=== PATIENT | female | born 1995 | race Caucasian/White ===

== ENCOUNTER 2019-05-31 12:42 | Emergency (ER) | payer OTHER ==
[~2019-05-31] VITALS: Ht 160 cm; Wt 49.9 kg
--- NOTE | 2019-05-31 12:47 | NUR ---
ED Nurse Note: Seizure precaution initiated. Padded siderailx 2 . Placed patient on cardiac monitior. Call light within reach. Instructed friend to press call light.
[2019-05-31] MEDS ORDERED: levETIRAcetam 1,000mg/NS100ml 100 ML IVPB ONE (13:00)
--- NOTE | 2019-05-31 13:12 | Emergency Room Report ---
History of Present Illness General Chief Complaint: Seizure Source: Patient Present Illness HPI Disclaimer: Please note that this report is being documented using DRAGON technology. This can lead to erroneous entry secondary to incorrect interpretation by the dictating instrument. HPI: 23-year-old female with a history of seizures presents for evaluation after generalized tonic-clonic seizure. While the patient states she has had generalized seizures in the past they have not occurred in several years and it only occurred in the context of drinking alcohol. She does not take any antiepileptic medications. She was resting at home after a night of drinking when she had a witnessed generalized tonic clonic seizure occurring while laying on the couch. There is no fall or head injury. She regained consciousness soon after her convulsions ended. There is no vomiting, she was ambulatory and was able to walk into the emergency department of difficulty. She denies any headache, visual changes, chest pain, shortness of breath, abdominal pain, nausea, vomiting. No recent change in her state of health. She no longer follows up with her neurologist. PMH: Seizure disorder PSH: Denies Allergies: Denies Social Hx: Social alcohol use. Denies tobacco or drug use Allergies: Coded Allergies: No Known Allergies (Unverified , 05/31/19) Patient History Last Menstrual Period: 05/23/2019 Nursing Documentation-PMH Past Medical History: No History, Except For History Of Psychiatric Problem: Yes - anxiety Hx Seizures: Yes Review of Systems All Other Systems: negative except mentioned in HPI Physical Exam Vital Signs Date Time Temp Pulse Resp B/P (MAP) Pulse Ox O2 Delivery O2 Flow Rate FiO2 05/31/19 12:45 98.1 118 18 127/68 (87) 99 Room Air General: Awake and alert, no acute distress HEENT: NC/AT. EOMI. PERRLA. Visual busch are full. No nystagmus. Facial expressions are symmetrical. No facial droop. Cardiovascular: RRR. S1 and S2 normal. No murmur appreciated Resp: Normal work of breathing. No cough, wheezing or crackles appreciated Abdomen: Abdomen is soft, nondistended. Nontender Skin: Intact. No abrasions, laceration or rash over the exposed skin MSK: Normal tone and bulk. Moving all extremities. No obvious deformity. There is no drift in the upper or lower extremities bilaterally. Neuro: Awake and alert. Mentating appropriately. Facial expression symmetrical. No dysarthria, no ataxia on [id number] or [id number] testing. Sensation to light touch is intact over the upper and lower extremities. The patient has intact speech with good repetition, comprehension. Fund of knowledge is full. Medical Decision Making Diagnostic Impression: Primary Impression: Epileptic seizure, generalized ER Course 23-year-old female with a history of seizure disorder presents after a generalized seizure occurring today without a head injury. Overall she is well- appearing, exam is nonfocal and she has no acute complaints at this time. Likely this is another 1 of her seizures that is related to alcohol use and I counseled her on the dangers of drinking alcohol in the setting. She was given a gram of Keppra on arrival and we will check metabolic and infectious labs however do not believe she requires a CT scan of the head at this time. I also counseled the patient that she is not to drive or operate any heavy machinery until she can be reevaluated and cleared for these activities by a neurologist. Presuming unremarkable labs she may be discharged home without antiepileptic medication however she should have close follow-up with PMD and neurology. Laboratory Tests Test 05/31/19 13:00 05/31/19 13:35 White Blood Count 6.7 K/UL (4.8-10.8) Red Blood Count 4.58 M/UL (4.20-5.40) Hemoglobin 14.1 G/DL (12.0-16.0) Hematocrit 41.6 % (37.0-47.0) Mean Corpuscular Volume 91 FL (80-99) Mean Corpuscular Hemoglobin 30.8 PG (27.0-31.0) Mean Corpuscular Hemoglobin Concent 33.9 G/DL (32.0-36.0) Red Cell Distribution Width 10.9 % (11.6-14.8) L Platelet Count 438 K/UL (150-450) Mean Platelet Volume 5.3 FL (6.5-10.1) L Neutrophils (%) (Auto) 59.7 % (45.0-75.0) Lymphocytes (%) (Auto) 32.9 % (20.0-45.0) Monocytes (%) (Auto) 6.0 % (1.0-10.0) Eosinophils (%) (Auto) 0.8 % (0.0-3.0) Basophils (%) (Auto) 0.6 % (0.0-2.0) Sodium Level 142 MMOL/L (136-145) Potassium Level 4.0 MMOL/L (3.5-5.1) Chloride Level 108 MMOL/L (98-107) H Carbon Dioxide Level 25 MMOL/L (21-32) Anion Gap 9 mmol/L (5-15) Blood Urea Nitrogen 7 mg/dL (7-18) Creatinine 0.8 MG/DL (0.55-1.30) Estimate Glomerular Filtration Rate > 60 mL/min (>60) Glucose Level 89 MG/DL (74-106) Calcium Level 9.1 MG/DL (8.5-10.1) Total Bilirubin 0.4 MG/DL (0.2-1.0) Aspartate Amino Transferase (AST) 15 U/L (15-37) Alanine Aminotransferase (ALT) 19 U/L (12-78) Alkaline Phosphatase 45 U/L (46-116) L Total Creatine Kinase 73 U/L (26-308) Creatine Kinase MB 0.9 NG/ML (0.0-3.6) Creatine Kinase MB Relative Index 1.2 Total Protein 7.1 G/DL (6.4-8.2) Albumin 3.8 G/DL (3.4-5.0) Globulin 3.3 g/dL Albumin/Globulin Ratio 1.2 (1.0-2.7) Serum Alcohol < 3 mg/dL Urine Color Pale yellow Urine Appearance Slightly cloudy Urine pH 7 (4.5-8.0) Urine Specific [place] 1.010 (1.005-1.035) Urine Protein 2+ (NEGATIVE) H Urine Glucose (UA) Negative (NEGATIVE) Urine Ketones 1+ (NEGATIVE) H Urine Blood 5+ (NEGATIVE) H Urine Nitrite Negative (NEGATIVE) Urine Bilirubin Negative (NEGATIVE) Urine Urobilinogen Normal MG/DL (0.0-1.0) Urine Leukocyte Esterase 1+ (NEGATIVE) H Urine RBC 20-30 /HPF (0 - 2) H Urine WBC 2-4 /HPF (0 - 2) Urine Squamous Epithelial Cells Few /LPF (NONE/OCC) Urine Bacteria Few /HPF (NONE) Urine Opiates Screen Negative (NEGATIVE) Urine Barbiturates Screen Negative (NEGATIVE) Phencyclidine (PCP) Screen Negative (NEGATIVE) Urine Amphetamines Screen Negative (NEGATIVE) Urine Benzodiazepines Screen Negative (NEGATIVE) Urine Cocaine Screen Negative (NEGATIVE) Urine Marijuana (THC) Screen Negative (NEGATIVE) EKG Diagnostic Results EKG Time: 13:05 Rate: normal Rhythm: NSR ST Segments: no acute changes Other Impression Sinus rhythm, normal axis, normal intervals, no ST segment changes. Rhythm Strip Diag. Results Rhythm Strip Time: 13:05 EP Interpretation: yes Rate: 90s Rhythm: NSR, no PVC's, no ectopy Reevaluation Time: 14:24 Last Vital Signs Date Time Temp Pulse Resp B/P (MAP) Pulse Ox O2 Delivery O2 Flow Rate FiO2 05/31/19 12:45 98.1 118 18 127/68 (87) 99 Room Air Reevaluation Impression Blood work is returned largely within normal limits. No evidence of infection or gross electro light abnormality. Her seizure was likely caused by her alcohol use and I counseled her on abstaining from alcohol until she can be evaluated by neurologist. She is also again instructed not to climb high ladders, swim unattended or drive a motor vehicle until cleared by neurology. She received Keppra. Will be discharged home to follow-up as an outpatient with PMD and neurology. We discussed reasons to return to the emergency department. She understands and agrees with this treatment plan. Disposition: HOME, SELF-CARE Condition: Stable Eleno Schaffer MD May 31, 2019 13:12
--- NOTE | 2019-05-31 13:46 | NUR ---
Nursing Notes: patient remains awake and talkative, answers question accurately and coherently, there is no slur of delay, pupils are reacrtive to light and is able to track, no pain described at this time. she is able to use cellular phone with no impairment noted, Seizure description: friend at the bedside heard a loud scream, upon entering the room she was found to be shaking with eyes rolling upwards. lasted approximately a minute, after sezuire finished she was awake and talkative with lethargy.
[2019-05-31 13:53] VITALS: BP 98/59
[2019-05-31 13:53] LABS: ANION GAP 9 mmol/L (5-15); BLOOD UREA NITROGEN 7 mg/dL (7-18); CALCIUM 9.1 MG/DL (8.5-10.1); CARBON DIOXIDE 25 MMOL/L (21-32); CHLORIDE 108 MMOL/L (98-107); CREATININE 0.8 MG/DL (0.55-1.30); SODIUM 142 MMOL/L (136-145)
[2019-05-31 13:57] LABS: APPEARANCE,URINE SLIGHTLY CLOUDY; BILIRUBIN, URINE NEGATIVE (NEGATIVE); COLOR,URINE PALE YELLOW; GLUCOSE, URINE (UA) NEGATIVE (NEGATIVE); KETONES,URINE 1+ (NEGATIVE); LEUKOCYTE ESTERASE ,URINE 1+ (NEGATIVE); NITRITE,URINE NEGATIVE (NEGATIVE); PH,URINE 7 (4.5-8.0); PROTEIN,URINE 2+ (NEGATIVE); UROBILINOGEN,URINE NORMAL MG/DL (0.0-1.0)
[2019-05-31 14:01] LABS: BASOPHILS % (AUTO) 0.6 % (0.0-2.0); EOSINOPHILS % (AUTO) 0.8 % (0.0-3.0); HEMATOCRIT 41.6 % (37.0-47.0); HEMOGLOBIN 14.1 G/DL (12.0-16.0); LYMPHOCYTES % (AUTO) 32.9 % (20.0-45.0); MEAN CORPUSCULAR VOLUME 91 FL (80-99); NEUTROPHILS % (AUTO) 59.7 % (45.0-75.0); PLATELET COUNT 438 K/UL (150-450); RED BLOOD COUNT 4.58 M/UL (4.20-5.40); RED CELL DISTRIBUTION WIDTH 10.9 % (11.6-14.8); WHITE BLOOD COUNT 6.7 K/UL (4.8-10.8)
[2019-05-31 14:09] LABS: ALANINE AMINOTRANSFERASE 19 U/L (12-78); ALBUMIN 3.8 G/DL (3.4-5.0); ALBUMIN/GLOBULIN RATIO 1.2 (1.0-2.7); ALKALINE PHOSPHATASE 45 U/L (46-116); ASPARTATE AMINO TRANSFERASE 15 U/L (15-37); BILIRUBIN,TOTAL 0.4 MG/DL (0.2-1.0); CKMB 0.9 NG/ML (0.0-3.6); CREATINE KINASE 73 U/L (26-308)
[2019-05-31] MEDS ORDERED: Acetaminophen 500mg (ES) tab ORAL ONE (14:15)
[2019-05-31 14:42] VITALS: BP 105/58
== END 2019-05-31 14:42 | disposition home or self-care (01) ==
LOC: EDBD 12:42 → EMR 12:58
DX: G40.409 Other generalized epilepsy and epileptic syndromes, not intractable, without status epilepticus (principal); F41.9 Anxiety disorder, unspecified
CPT/HCPCS: 36415; 80053; 80307; 81003; 82550; 82553; 82962; 85025; 93005; 96365; 99284; G0480; J1953; J7030